=== PATIENT | male | born 1970 | race Caucasian/White ===

== ENCOUNTER 2018-11-29 04:57 | Emergency (ER) | payer BC, OTHER ==
[~2018-11-29] VITALS: Ht 190.5 cm; Wt 146.5 kg
[2018-11-29 05:00] VITALS: BP 147/88
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
[2018-11-29] MEDS ORDERED: ZOFRAN IV STA (05:29)
[2018-11-29] MEDS ORDERED: MORPHINE SULFATE IV ONE ×2 (05:30→07:00)
[2018-11-29] MEDS ORDERED: ZOFRAN ONE (05:32)
[2018-11-29 05:56] LABS: CALCIUM 8.9 mg/dL (8.4-10.5); CARBON DIOXIDE 23.7 mmol/L (20.0-32)
[2018-11-29 05:57] VITALS: BP 120/64
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
[2018-11-29 07:59] VITALS: BP 129/77
[2018-11-29 08:00] VITALS: BP 129/77
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
== END 2018-11-29 07:50 | disposition home or self-care (01) ==
LOC: ER 04:57
DX: S39.012A Strain of muscle, fascia and tendon of lower back, initial encounter (principal); S80.211A Abrasion, right knee, initial encounter; S20.222A Contusion of left back wall of thorax, initial encounter; J45.909 Unspecified asthma, uncomplicated; Z79.899 Other long term (current) drug therapy; V47.5XXA Car driver injured in collision with fixed or stationary object in traffic accident, initial encounter; Y93.89 Activity, other specified; Y92.488 Other paved roadways as the place of occurrence of the external cause; Y99.8 Other external cause status
CPT/HCPCS: 36415; 71260; 74177; 80048; 96374; 96375; 96376; 99285; J2405; Q9965